=== PATIENT | female | born 1965 | race Caucasian/White ===

== ENCOUNTER 2022-05-25 11:25 | Emergency (ER) | payer OTHER ==
[~2022-05-25] VITALS: Ht 170.2 cm; Wt 117.0 kg
== END 2022-05-25 12:52 | disposition home or self-care (01) ==
LOC: FSED 11:37
DX: S00.83XA Contusion of other part of head, initial encounter (principal); R51.9 Headache, unspecified; W18.39XA Other fall on same level, initial encounter; Y93.01 Activity, walking, marching and hiking; Y92.89 Other specified places as the place of occurrence of the external cause
CPT/HCPCS: 70450; 99282

== ENCOUNTER 2023-02-13 08:13 | Inpatient (IN) | payer OTHER ==
[2023-02-13] VITALS (7 sets, daily range): BP systolic 120–137; BP diastolic 66–76; PULSE 91–101; RESP 20–22; TEMP 98.2–99.5; O2SAT 95–99
[~2023-02-13] VITALS: Ht 170.2 cm; Wt 90.7 kg
[2023-02-13] MEDS ORDERED: SODIUM CHLORIDE 0.9% 1000ML 1,000 ML IV STA (08:22)
[2023-02-13] MEDS ORDERED: DEXAMETHASONE SOD PHOS 10 MG/1 ML VIAL IV ONE (08:30)
[2023-02-13 08:52] LABS: BASOPHILS # (AUTO) 0.1 (0.0-0.1); BASOPHILS % 0.4 % (0.0-1.0); EOSINOPHILS # (AUTO) 0.2 (0.0-0.4); EOSINOPHILS % 0.9 % (0.0-6.0); HEMATOCRIT 30.1 % (34.2-44.1); HEMOGLOBIN 8.9 g/dL (12.0-16.0); LYMPHOCYTES # (AUTO) 1.2 (1.0-3.2); LYMPHOCYTES % 5.9 % (18.0-39.1); MEAN CORPUSCULAR HEMOGLOBIN 26.1 pg (28-32); MEAN CORPUSCULAR HGB CONC 29.6 g/dL (31-35); MEAN CORPUSCULAR VOLUME 88.3 fL (81-99); MONOCYTES # (AUTO) 1.4 (0.2-0.8); MONOCYTES % 7.2 % (4.4-11.3); PLATELET COUNT 440 x10e3/uL (140-360); RED BLOOD COUNT 3.41 x10e6/uL (3.6-5.1); RED CELL DISTRIBUTION WIDTH 15.9 % (11.7-14.4)
[2023-02-13 09:04] LABS: INR 0.86; PROTHROMBIN TIME 12.2 seconds (11.9-14.5)
[2023-02-13 09:05] LABS: PARTIAL THROMBOPLASTIN TIME 29.4 seconds (23.8-35.5)
[2023-02-13 09:16] LABS: ALBUMIN 2.8 g/dL (3.5-5.0); ALBUMIN/GLOBULIN RATIO 0.8 (0.8-2.0); ANION GAP 13.2 mmol/L (8-16); CALCIUM 8.6 mg/dL (8.4-10.2); CREATININE, SERUM 0.81 mg/dL (0.57-1.11); POTASSIUM 4.2 mmol/L (3.5-5.1)
[2023-02-13 10:13] LABS: CLARITY,URINE SL CLOUDY (CLEAR); COLOR,URINE YELLOW (YELLOW); KETONES,URINE NEGATIVE (NEGATIVE); LEUKOCYTE ESTERASE ,URINE SMALL (NEGATIVE); NITRITE,URINE POSITIVE (NEGATIVE); PROTEIN,URINE DIPSTICK NEGATIVE (NEGATIVE); URINE UROBILINOGEN 0.2 mg/dL (0.2 - 1)
[2023-02-13 10:24] LABS: BACTERIA,URINE MANY /HPF; EPITHELIAL CELLS,URINE RARE /LPF; RBC,URINE 0-5 /HPF (0-5); WBC,URINE (MAN) >50 /HPF (0-5)
[2023-02-13] MEDS ORDERED: IOPAMIDOL 370 MG/ML 100 ML INFUS..BTL INJ ONE (10:37)
[2023-02-13] MEDS ORDERED: ALBUTEROL/IPRATROPIUM 3 ML NEB NEB PRN (10:45)
[2023-02-13] MEDS ORDERED: ONDANSETRON HCL INJ 2MG/ML 2ML 2 MG/ML VIAL IV PRN (10:45)
[2023-02-13] MEDS ORDERED: ALBUTEROL/IPRATROPIUM 3 ML NEB NEB ONE (10:45)
[2023-02-13] MEDS: FAMOTIDINE 20 MG/2 ML VIAL IV SCH ×2 (11:27→21:34)
[2023-02-13] MEDS ORDERED: BUPROPION XL150 MG PO (13:20)
[2023-02-13] MEDS ORDERED: CELECOXIB200 MG PO (13:20)
[2023-02-13] MEDS ORDERED: OMEPRAZOLE40 MG PO (13:20)
[2023-02-13] MEDS ORDERED: TOPIRAMATE25 MG PO (13:20)
[2023-02-13] MEDS ORDERED: SOLIFENACIN SUCC5 MG PO (13:20)
[2023-02-13] MEDS ORDERED: CITALOPRAM HBR40 MG PO (13:20)
[2023-02-13] MEDS ORDERED: BUPROPION XL300 MG PO (13:20)
[2023-02-13] MEDS ORDERED: FLUTICASONE PRO16 GM IL (13:22)
[2023-02-13] MEDS ORDERED: ALBUTEROL INH (13:22)
[2023-02-13] MEDS ORDERED: DOCUSATE SODIUM 100 MG CAP PO PRN (15:45)
[2023-02-13] MEDS ORDERED: ACETAMINOPHEN 325 MG TAB PO PRN (15:45)
[2023-02-13] MEDS ORDERED: MELATONIN 5 MG TABLET PO PRN (15:45)
[2023-02-13] MEDS ORDERED: DEXTROSE 50% SYRINGE 50 ML IV PRN (15:45)
[2023-02-13] MEDS ORDERED: HYDRALAZINE HCL 20 MG/ML VIAL IV PRN (15:45)
[2023-02-13] MEDS ORDERED: DIPHENHYDRAMINE HCL 25 MG CAP PO PRN (15:45)
[2023-02-13] MEDS ORDERED: LIDOCAINE 4% PATCH TP PRN (15:45)
[2023-02-13] MEDS ORDERED: POTASSIUM CHLORIDE 20 MEQ TAB CR PO PRN (15:45)
[2023-02-13] MEDS ORDERED: SIMETHICONE 80 MG CHEW PO PRN (15:45)
[2023-02-13] MEDS: ENOXAPARIN SOD INJ 40 MG/0.4 ML SYR SC SCH (16:47)
[2023-02-13] MEDS: BENZONATATE 100 MG CAP PO PRN (21:34)
[2023-02-13] MEDS: DEXAMETHASONE SOD PHOS 10 MG/1 ML VIAL IV SCH (21:34)
[2023-02-14] VITALS (14 sets, daily range): BP systolic 113–146; BP diastolic 66–92; PULSE 80–110; RESP 16–28; TEMP 98–99.1; O2SAT 94–100
[2023-02-14] MEDS: ALBUTEROL/IPRATROPIUM 3 ML NEB NEB PRN ×2 (01:05→06:10)
[2023-02-14] MEDS: BENZONATATE 100 MG CAP PO PRN (05:45)
[2023-02-14 05:49] LABS: BASOPHILS % 0.2 % (0.0-1.0); HEMOGLOBIN 9.1 g/dL (12.0-16.0); LYMPHOCYTES % 7.3 % (18.0-39.1); MEAN CORPUSCULAR HEMOGLOBIN 25.9 pg (28-32); MEAN CORPUSCULAR HGB CONC 29.4 g/dL (31-35); MEAN CORPUSCULAR VOLUME 88.1 fL (81-99); MONOCYTES # (AUTO) 0.7 (0.2-0.8); MONOCYTES % 5.4 % (4.4-11.3); NEUTROPHILS # (AUTO) 11.6 (2.1-6.9); NEUTROPHILS % 86.4 % (38.7-80.0); PLATELET COUNT 440 x10e3/uL (140-360); RED BLOOD COUNT 3.52 x10e6/uL (3.6-5.1)
[2023-02-14] MEDS: BUDESONIDE 0.25 MG/2 ML NEB NEB SCH ×2 (06:10→18:30)
[2023-02-14 06:16] LABS: ALBUMIN 2.8 g/dL (3.5-5.0); ALBUMIN/GLOBULIN RATIO 0.8 (0.8-2.0); ANION GAP 16.4 mmol/L (8-16); CALCIUM 8.8 mg/dL (8.4-10.2); CHOL/HDL RATIO 3.4 (3.0-3.6); CREATININE, SERUM 0.76 mg/dL (0.57-1.11); POTASSIUM 4.4 mmol/L (3.5-5.1)
[2023-02-14] MEDS: PANTOPRAZOLE SOD 40 MG TABEC PO SCH (08:47)
[2023-02-14] MEDS ORDERED: NON-FORMULARY MEDICATION (Citalopram Hydrobromide (Citalopram Hbr) 40 MG) PO SCH (09:00)
[2023-02-14] MEDS: CITALOPRAM HYDROBROMIDE 20 MG TAB PO SCH (09:53)
[2023-02-14] MEDS: FAMOTIDINE 20 MG/2 ML VIAL IV SCH ×2 (09:53→21:52)
[2023-02-14] MEDS: BUPROPION HCL 150 MG TABCR PO SCH (09:53)
[2023-02-14] MEDS: SOLIFENACIN SUCCINATE 5 MG TAB PO SCH (09:53)
[2023-02-14] MEDS: DEXAMETHASONE SOD PHOS 10 MG/1 ML VIAL IV SCH ×2 (09:54→21:52)
[2023-02-14] MEDS: SUCRALFATE 1 GM/10 ML SUSP NG SCH ×3 (10:56→21:52)
[2023-02-14] MEDS ORDERED: FLUTICASONE PROPIONATE NASAL SPRAY NS SCH (11:45)
[2023-02-14] MEDS: LORATADINE 10 MG TAB PO SCH (11:57)
[2023-02-14] MEDS ORDERED: GUAIFENESIN/CODEINE 5 ML LIQD PO PRN (12:00)
[2023-02-14] MEDS: Vancomycin IV 1 GM in SODIUM CHLORIDE 0.9% 250ML 250 ML IV SCH (12:25)
[2023-02-14] MEDS ORDERED: Vancomycin IV 1 GM in SODIUM CHLORIDE 0.9% 250ML 250 ML IV SCH (12:30)
[2023-02-14] MEDS: ALBUTEROL/IPRATROPIUM 3 ML NEB NEB SCH ×3 (13:00→23:00)
[2023-02-14] MEDS ORDERED: ONDANSETRON HCL 4 MG ORAL DISINTEGRATING TAB PO PRN (13:15)
[2023-02-14] MEDS: GUAIFENESIN/DEXTROMETHORPHAN LIQD 5 ML UDC PO PRN (16:31)
[2023-02-14] MEDS: ENOXAPARIN SOD INJ 40 MG/0.4 ML SYR SC SCH (16:32)
[2023-02-14] MEDS: FLUTICASONE PROPIONATE NASAL SPRAY NS SCH (21:51)
[2023-02-15] VITALS (11 sets, daily range): BP systolic 114–126; BP diastolic 66–90; PULSE 77–102; RESP 17–24; TEMP 97.7–98.9; O2SAT 95–100
[2023-02-15] MEDS: Vancomycin IV 1 GM in SODIUM CHLORIDE 0.9% 250ML 250 ML IV SCH ×2 (00:20→13:19)
[2023-02-15] MEDS: BUDESONIDE 0.25 MG/2 ML NEB NEB SCH ×2 (06:20→19:22)
[2023-02-15] MEDS: ALBUTEROL/IPRATROPIUM 3 ML NEB NEB SCH (06:20)
[2023-02-15] MEDS: SUCRALFATE 1 GM/10 ML SUSP NG SCH ×4 (08:30→21:19)
[2023-02-15] MEDS: PANTOPRAZOLE SOD 40 MG TABEC PO SCH (08:30)
[2023-02-15] MEDS: FAMOTIDINE 20 MG/2 ML VIAL IV SCH (08:37)
[2023-02-15] MEDS: CITALOPRAM HYDROBROMIDE 20 MG TAB PO SCH (08:37)
[2023-02-15] MEDS: BUPROPION HCL 150 MG TABCR PO SCH (08:37)
[2023-02-15] MEDS: LORATADINE 10 MG TAB PO SCH (08:37)
[2023-02-15] MEDS: SOLIFENACIN SUCCINATE 5 MG TAB PO SCH (08:38)
[2023-02-15] MEDS: ALBUTEROL SULF 0.083% NEB SOLN 3 ML NEB NEB SCH ×2 (13:15→19:22)
[2023-02-15] MEDS: IPRATROPIUM BROMIDE 0.02% 2.5 ML NEB NEB SCH ×2 (13:15→19:22)
[2023-02-15] MEDS: ENOXAPARIN SOD INJ 40 MG/0.4 ML SYR SC SCH (17:19)
[2023-02-15] MEDS: FLUTICASONE PROPIONATE NASAL SPRAY NS SCH (21:19)
[2023-02-15] MEDS: FAMOTIDINE 20 MG TAB PO SCH (21:20)
[2023-02-15] MEDS: GUAIFENESIN/DEXTROMETHORPHAN LIQD 5 ML UDC PO PRN (21:23)
[2023-02-16] VITALS (9 sets, daily range): BP systolic 118–128; BP diastolic 75–80; PULSE 88–107; RESP 16–26; TEMP 98.3–99.3; O2SAT 95–100
[2023-02-16] MEDS: ALBUTEROL SULF 0.083% NEB SOLN 3 ML NEB NEB SCH ×2 (00:25→07:12)
[2023-02-16] MEDS: IPRATROPIUM BROMIDE 0.02% 2.5 ML NEB NEB SCH ×2 (00:25→07:12)
[2023-02-16] MEDS: Vancomycin IV 1 GM in SODIUM CHLORIDE 0.9% 250ML 250 ML IV SCH ×2 (00:31→12:37)
[2023-02-16 06:07] LABS: BASOPHILS # (AUTO) 0.1 (0.0-0.1); BASOPHILS % 0.5 % (0.0-1.0); EOSINOPHILS # (AUTO) 0.2 (0.0-0.4); EOSINOPHILS % 1.3 % (0.0-6.0); HEMATOCRIT 31.3 % (34.2-44.1); LYMPHOCYTES # (AUTO) 3.8 (1.0-3.2); MEAN CORPUSCULAR HEMOGLOBIN 25.9 pg (28-32); MEAN CORPUSCULAR HGB CONC 28.8 g/dL (31-35); MEAN CORPUSCULAR VOLUME 90.2 fL (81-99); MONOCYTES # (AUTO) 1.2 (0.2-0.8); MONOCYTES % 9.2 % (4.4-11.3); NEUTROPHILS # (AUTO) 7.6 (2.1-6.9); NEUTROPHILS % 59.1 % (38.7-80.0); PLATELET COUNT 458 x10e3/uL (140-360); RED BLOOD COUNT 3.47 x10e6/uL (3.6-5.1)
[2023-02-16 06:33] LABS: ANION GAP 12.5 mmol/L (8-16); CALCIUM 8.8 mg/dL (8.4-10.2); CREATININE, SERUM 0.78 mg/dL (0.57-1.11); POTASSIUM 3.5 mmol/L (3.5-5.1)
[2023-02-16] MEDS: BUDESONIDE 0.25 MG/2 ML NEB NEB SCH (07:12)
[2023-02-16] MEDS: PANTOPRAZOLE SOD 40 MG TABEC PO SCH (07:50)
[2023-02-16] MEDS: SUCRALFATE 1 GM/10 ML SUSP NG SCH ×2 (07:50→12:36)
[2023-02-16] MEDS: LORATADINE 10 MG TAB PO SCH (09:58)
[2023-02-16] MEDS: FAMOTIDINE 20 MG TAB PO SCH (09:58)
[2023-02-16] MEDS: CITALOPRAM HYDROBROMIDE 20 MG TAB PO SCH (09:58)
[2023-02-16] MEDS: SOLIFENACIN SUCCINATE 5 MG TAB PO SCH (09:58)
[2023-02-16] MEDS: BUPROPION HCL 150 MG TABCR PO SCH (09:58)
[2023-02-16] MEDS ORDERED: AZITHROMYCIN 250 MG TAB PO SCH (10:00)
[2023-02-16] MEDS ORDERED: PREDNISONE20 MG PO (12:25)
[2023-02-16] MEDS ORDERED: CEFDINIR300 MG PO (12:25)
[2023-02-16] MEDS ORDERED: CARAFATE1 GM PO (12:27)
[2023-02-16] MEDS ORDERED: BENZONATATE100 MG PO (12:29)
[2023-02-17] MEDS ORDERED: AZITHROMYCIN 250 MG TAB PO SCH (09:00)
== END 2023-02-16 13:51 | disposition home or self-care (01) | DRG 871 ==
LOC: ER 08:16 → ERHOLD 10:42 → MED/SURG3 12:35
PROVIDERS: ADMIT Internal Medicine; ATTEND Internal Medicine
PROC: 5A09457 Assistance with Respiratory Ventilation, 24-96 Consecutive Hours, Continuous Positive Airway Pressure (ICD-10-PCS; principal; 2023-02-13)
DX: A41.9 Sepsis, unspecified organism (principal); J69.0 Pneumonitis due to inhalation of food and vomit; J96.01 Acute respiratory failure with hypoxia; N39.0 Urinary tract infection, site not specified; Z16.11 Resistance to penicillins; K21.9 Gastro-esophageal reflux disease without esophagitis; B96.20 Unspecified Escherichia coli [E. coli] as the cause of diseases classified elsewhere; J45.909 Unspecified asthma, uncomplicated; R00.0 Tachycardia, unspecified; G47.33 Obstructive sleep apnea (adult) (pediatric); F41.9 Anxiety disorder, unspecified; I10 Essential (primary) hypertension; E66.01 Morbid (severe) obesity due to excess calories; F32.A Depression, unspecified; Z68.31 Body mass index [BMI] 31.0-31.9, adult; Z86.16 Personal history of COVID-19; Z20.822 Contact with and (suspected) exposure to COVID-19; Z96.652 Presence of left artificial knee joint
CPT/HCPCS: 36415; 71045; 71260; 80048; 80053; 80061; 80202; 81001; 82550; 83036; 83605; 83735; 83880; 84443; 84484; 85025; 85610; 85730; 87040; 87071; 87086; 87116; 87186; 87205; 87206; 93005; 93306; 94640; 94660; 94799; 96360; 99284; J0696; J1100; J1650; J7030; J7050; Q9967

== ENCOUNTER 2023-06-06 11:17 | Emergency (ER) | payer OTHER ==
[~2023-06-06] VITALS: Ht 170.2 cm; Wt 86.2 kg
[~2023-06-06 11:17] MED LIST: ALBUTEROL INH; ASCORBIC ACID500 MG PO; BENZONATATE100 MG PO; BUPROPION HCL75 MG PO; BUPROPION XL150 MG PO; BUPROPION XL300 MG PO; CARAFATE1 GM PO; CEFDINIR300 MG PO; CEFUROXIME500 MG PO; CELECOXIB200 MG PO; CITALOPRAM HBR40 MG PO; CLONAZEPAM0.5 MG PO; Cholecalciferol PO; DEXTROSE 50%-WA50 M1 IV; FLUTICASONE PRO16 GM IL; LOVENOX40 MG/0.4 SC; Levalbuterol Hcl Soln Nebu INH; MILK OF MA400 MG/5 M PO; OMEPRAZOLE40 MG PO; ONDANSETRON4 MG/2 M1 IV; PREDNISONE20 MG PO; PROTONIX IV40 MG IV; SOLIFENACIN SUCC5 MG PO; TOPIRAMATE25 MG PO; Zinc Sulfate PO
[2023-06-06 11:37] VITALS: O2SAT 100
[2023-06-06] MEDS ORDERED: DOXYCYCLINE HY100 MG PO (12:03)
[2023-06-06] MEDS ORDERED: MUPIROCIN22 GM (12:06)
== END 2023-06-06 12:20 | disposition home or self-care (01) ==
LOC: FSED 11:25
DX: J34.0 Abscess, furuncle and carbuncle of nose (principal); E78.5 Hyperlipidemia, unspecified; K21.9 Gastro-esophageal reflux disease without esophagitis; M19.09 Primary osteoarthritis, other specified site; G47.30 Sleep apnea, unspecified; F41.9 Anxiety disorder, unspecified
CPT/HCPCS: 99282

== ENCOUNTER 2023-06-07 21:25 | Inpatient (IN) | payer OTHER ==
[~2023-06-07] VITALS: Ht 170.2 cm; Wt 101.6 kg
[~2023-06-07 21:25] MED LIST changes: +DOXYCYCLINE HY100 MG PO; +MUPIROCIN22 GM
[2023-06-07] MEDS ORDERED: ACETAMINOPHEN 325 MG TAB PO ONE (22:45)
[2023-06-07] MEDS ORDERED: Vancomycin IV 2 GM in SODIUM CHLORIDE 0.9% 500ML 500 ML IV ONE (23:00)
[2023-06-07] MEDS ORDERED: SODIUM CHLORIDE 0.9% 1000ML 1,000 ML IV SCH (23:00)
[2023-06-07] MEDS ORDERED: CEFEPIME 2 GM in SODIUM CHLORIDE 0.9% 100 ML IV ONE (23:00)
[2023-06-07] MEDS ORDERED: ACETAMINOPHEN 325 MG TAB ONE (23:09)
[2023-06-07] MEDS ORDERED: SODIUM CHLORIDE 0.9% 500ML 500 ML ONE (23:09)
[2023-06-07] MEDS ORDERED: SODIUM CHLORIDE 0.9% 1000ML 1,000 ML ONE (23:09)
[2023-06-07] MEDS ORDERED: SODIUM CHLORIDE 0.9% 100 ML ONE (23:09)
[2023-06-07] MEDS ORDERED: CEFEPIME HCL 1 GM VIAL ONE (23:10)
[2023-06-07] MEDS ORDERED: Vancomycin IV 1 GM VIAL ONE (23:10)
[2023-06-07] MEDS ORDERED: IOPAMIDOL 370 MG/ML 100 ML INFUS..BTL INJ ONE (23:19)
[2023-06-08] MEDS ORDERED: ONDANSETRON HCL INJ 2MG/ML 2ML 2 MG/ML VIAL IV PRN (01:00)
[2023-06-08] MEDS ORDERED: SODIUM CHLORIDE FLUSH 10 ML SYR INJ PRN (01:00)
[2023-06-08] MEDS: CEFEPIME 2 GM in SODIUM CHLORIDE 0.9% 100 ML IV SCH ×3 (07:46→22:04)
[2023-06-08] MEDS: ACETAMINOPHEN 325 MG TAB PO PRN (13:45)
[2023-06-08 14:30] VITALS: BP 123/66; PULSE 90; RESP 20; TEMP 101.6; O2SAT 100
[2023-06-08 16:26] VITALS: BP 123/66; PULSE 90; RESP 20; TEMP 99; O2SAT 100
[2023-06-08] MEDS ORDERED: BENZONATATE 100 MG CAP PO PRN (18:45)
[2023-06-08] MEDS: HYDROCODONE/APAP 5MG-325MG TAB PO PRN (19:43)
[2023-06-08 20:00] VITALS: BP 93/49; PULSE 81; RESP 18; TEMP 99.5; O2SAT 98
[2023-06-09] VITALS (7 sets, daily range): BP systolic 93–107; BP diastolic 36–76; PULSE 80–87; RESP 18–22; TEMP 98–99.5; O2SAT 92–99
[2023-06-09 05:48] LABS: BASOPHILS # (AUTO) 0.1 (0.0-0.1); BASOPHILS % 0.8 % (0.0-1.0); EOSINOPHILS # (AUTO) 0.4 (0.0-0.4); EOSINOPHILS % 4.7 % (0.0-6.0); HEMATOCRIT 27.7 % (34.2-44.1); HEMOGLOBIN 8.3 g/dL (12.0-16.0); LYMPHOCYTES # (AUTO) 2.4 (1.0-3.2); LYMPHOCYTES % 27.1 % (18.0-39.1); MEAN CORPUSCULAR HEMOGLOBIN 24.5 pg (28-32); MEAN CORPUSCULAR VOLUME 81.7 fL (81-99); MONOCYTES # (AUTO) 0.7 (0.2-0.8); NEUTROPHILS # (AUTO) 5.2 (2.1-6.9); NEUTROPHILS % 58.9 % (38.7-80.0); PLATELET COUNT 283 x10e3/uL (140-360); RED BLOOD COUNT 3.39 x10e6/uL (3.6-5.1); RED CELL DISTRIBUTION WIDTH 16.1 % (11.7-14.4); WHITE BLOOD COUNT 8.87 x10e3/uL (4.8-10.8)
[2023-06-09] MEDS: CEFEPIME 2 GM in SODIUM CHLORIDE 0.9% 100 ML IV SCH ×3 (06:00→21:21)
[2023-06-09 06:08] LABS: ALBUMIN 3.1 g/dL (3.5-5.0); ALBUMIN/GLOBULIN RATIO 0.9 (0.8-2.0); ANION GAP 13.2 mmol/L (8-16); CREATININE, SERUM 0.87 mg/dL (0.57-1.11); POTASSIUM 4.2 mmol/L (3.5-5.1)
[2023-06-09] MEDS: PANTOPRAZOLE SOD 40 MG TABEC PO SCH ×2 (08:27→16:07)
[2023-06-09] MEDS: SOLIFENACIN SUCCINATE 5 MG TAB PO SCH (08:27)
[2023-06-09] MEDS: CITALOPRAM HYDROBROMIDE 20 MG TAB PO SCH (08:28)
[2023-06-09] MEDS: BUPROPION HCL 150 MG TABCR PO SCH (08:28)
[2023-06-09] MEDS: HYDROCODONE/APAP 5MG-325MG TAB PO PRN ×3 (09:31→22:01)
[2023-06-09] MEDS: ACETAMINOPHEN 325 MG TAB PO PRN (12:28)
[2023-06-09] MEDS: ALPRAZOLAM 0.25 MG TAB PO PRN ×2 (14:01→21:21)
[2023-06-09] MEDS: MELATONIN 5 MG TABLET PO PRN (22:00)
[2023-06-10] VITALS (9 sets, daily range): BP systolic 103–140; BP diastolic 52–88; PULSE 61–94; RESP 16–21; TEMP 97.8–98.9; O2SAT 95–100
[2023-06-10] MEDS: HYDROCODONE/APAP 5MG-325MG TAB PO PRN ×3 (05:02→19:34)
[2023-06-10] MEDS: CEFEPIME 2 GM in SODIUM CHLORIDE 0.9% 100 ML IV SCH ×3 (05:02→21:27)
[2023-06-10] MEDS: PANTOPRAZOLE SOD 40 MG TABEC PO SCH ×2 (08:42→17:33)
[2023-06-10] MEDS: SOLIFENACIN SUCCINATE 5 MG TAB PO SCH (08:42)
[2023-06-10] MEDS: BUPROPION HCL 150 MG TABCR PO SCH (08:42)
[2023-06-10] MEDS: CITALOPRAM HYDROBROMIDE 20 MG TAB PO SCH (08:43)
[2023-06-10] MEDS: ALPRAZOLAM 0.25 MG TAB PO PRN ×2 (14:24→21:30)
[2023-06-10] MEDS: MELATONIN 5 MG TABLET PO PRN (21:30)
[2023-06-11] VITALS: BP 109/58; PULSE 78; RESP 18; TEMP 98.6; O2SAT 100
[2023-06-11 04:00] VITALS: BP 116/69; PULSE 81; RESP 20; TEMP 98.4; O2SAT 96
[2023-06-11] MEDS: CEFEPIME 2 GM in SODIUM CHLORIDE 0.9% 100 ML IV SCH (05:59)
[2023-06-11] MEDS: SOLIFENACIN SUCCINATE 5 MG TAB PO SCH (08:07)
[2023-06-11] MEDS: BUPROPION HCL 150 MG TABCR PO SCH (08:08)
[2023-06-11] MEDS: PANTOPRAZOLE SOD 40 MG TABEC PO SCH (08:08)
[2023-06-11] MEDS: CITALOPRAM HYDROBROMIDE 20 MG TAB PO SCH (08:08)
[2023-06-11 09:49] VITALS: BP 116/69; PULSE 81; RESP 20; TEMP 98.4; O2SAT 96
[2023-06-11] MEDS ORDERED: AUGMENTIN 500-1 EACH PO (11:25)
[2023-06-11] MEDS ORDERED: ACETAMINOPHEN325 M1 PO (11:25)
[2023-06-11] MEDS ORDERED: LEVOFLOXACIN250 MG PO (11:25)
[2023-06-11 11:39] LABS: BASOPHILS # (AUTO) 0.1 (0.0-0.1); BASOPHILS % 1.4 % (0.0-1.0); EOSINOPHILS # (AUTO) 0.4 (0.0-0.4); EOSINOPHILS % 7.8 % (0.0-6.0); HEMOGLOBIN 8.2 g/dL (12.0-16.0); LYMPHOCYTES # (AUTO) 1.5 (1.0-3.2); LYMPHOCYTES % 29.6 % (18.0-39.1); MEAN CORPUSCULAR HEMOGLOBIN 24.8 pg (28-32); MEAN CORPUSCULAR HGB CONC 30.4 g/dL (31-35); MEAN CORPUSCULAR VOLUME 81.6 fL (81-99); MONOCYTES # (AUTO) 0.6 (0.2-0.8); MONOCYTES % 11.9 % (4.4-11.3); NEUTROPHILS # (AUTO) 2.5 (2.1-6.9); NEUTROPHILS % 48.9 % (38.7-80.0); PLATELET COUNT 273 x10e3/uL (140-360); RED BLOOD COUNT 3.31 x10e6/uL (3.6-5.1); RED CELL DISTRIBUTION WIDTH 16.1 % (11.7-14.4); WHITE BLOOD COUNT 5.03 x10e3/uL (4.8-10.8)
[2023-06-11 12:06] LABS: ANION GAP 11.8 mmol/L (8-16); CREATININE, SERUM 0.76 mg/dL (0.57-1.11); POTASSIUM 4.8 mmol/L (3.5-5.1)
[2023-06-13] MEDS ORDERED: FEROSUL325 MG PO (02:08)
[2023-06-13] MEDS ORDERED: VITAMIN B-121000 MC1 PO (02:08)
== END 2023-06-11 14:39 | disposition home or self-care (01) | DRG 155 ==
LOC: FSED 21:33 → ERHOLD 06-08 01:03 → MED/SURG2 06-08 13:51
PROVIDERS: ADMIT Internal Medicine; ATTEND Internal Medicine
DX: J34.0 Abscess, furuncle and carbuncle of nose (principal); L03.211 Cellulitis of face; J45.909 Unspecified asthma, uncomplicated; G47.31 Primary central sleep apnea; K21.9 Gastro-esophageal reflux disease without esophagitis; R05.3 Chronic cough; N32.81 Overactive bladder; D63.8 Anemia in other chronic diseases classified elsewhere; M06.9 Rheumatoid arthritis, unspecified; F41.9 Anxiety disorder, unspecified; F32.A Depression, unspecified; G47.52 REM sleep behavior disorder; M17.0 Bilateral primary osteoarthritis of knee; K59.00 Constipation, unspecified; E78.5 Hyperlipidemia, unspecified; Z96.659 Presence of unspecified artificial knee joint; Z86.16 Personal history of COVID-19; Z63.79 Other stressful life events affecting family and household
CPT/HCPCS: 0223U; 36415; 70487; 71046; 80048; 80053; 80076; 81003; 82607; 83540; 83605; 85025; 87040; 87400; 99284; J0692; J7030; J7040; J7050; Q9967